=== PATIENT | female | born 1940 | race Two or more races ===

== ENCOUNTER 2017-07-18 14:21 | Observation (INO) | payer OTHER ==
--- NOTE | 2017-07-18 14:46 | PDOC ---
History of Present Illness - General Chief Complaint: Irregular Heart Beat Stated Complaint: AFIB Time Seen by Provider: 07/18/17 14:33 - History of Present Illness Initial Comments: 07/18/17 14:47 77 yo F with h/o ovarian ca. who presents with dizziness. Per phone checkout from [facility] patient presented with HTN 172/92, and was complaining of dizziness, with unsteady gait. EKG showed A-fib , A-flutter, and BP slowly improved to 150's SBP. Per patient report she was at [facility] for endometrial biopsy, with incidental SBP of 180-190. Shortly after was evaluated by cardiology ( dr. kothari) where her SBP was continually elevated, and patient was lightheaded, with abnormal EKG findings. Now asymptomatic. Denies chest pain, palpitations, swelling of ext, shortness of breath, N/V, F/C, abdominal or urinary complaints, lightheadedness, vertigo, weakness.Endorses h/o white coat HTN while in office, and denies antihypertensive medication ro anticoagulation use. Denies h/o ND, CAD, stent placement, CABG, CVA. PCP Dr. Gissel Puentes ( [place]) of 15 years. 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 Assisted in conversation by [employer] [id number], and Paul [id number]. Past History - Past Medical History Home Medications: Ambulatory Orders NK [No Known Home Medication] 07/18/17 COPD: No - Suicide/Smoking/Psychosocial Hx Smoking History: Never smoked Review of Systems - Review of Systems Comments:: 07/18/17 14:46 GENERAL/CONSTITUTIONAL: No fever or chills. No weakness. HEAD, EYES, EARS, NOSE AND THROAT: No change in vision. No ear pain or discharge. No sore throat.- CARDIOVASCULAR: No chest pain or shortness of breath RESPIRATORY: No cough, wheezing, or hemoptysis. GASTROINTESTINAL: No nausea, vomiting, diarrhea or constipation. GENITOURINARY: No dysuria, frequency, or change in urination. MUSCULOSKELETAL: No joint or muscle swelling or pain. No neck or back pain. SKIN: No rash NEUROLOGIC: No headache, vertigo, loss of consciousness, or change in strength/ sensation. ENDOCRINE: No increased thirst. No abnormal weight change HEMATOLOGIC/LYMPHATIC: No anemia, easy bleeding, or history of blood clots. ALLERGIC/IMMUNOLOGIC: No hives or skin allergy. *Physical Exam - Vital Signs Last Vital Signs Temp Pulse Resp BP Pulse Ox 98 F 84 18 141/69 100 07/18/17 14:36 07/18/17 14:36 07/18/17 14:36 07/18/17 14:36 07/18/17 14:36 - Physical Exam Comments: 07/18/17 14:46 GENERAL: Awake, alert, and fully oriented, in no acute distress HEAD: No signs of trauma, normocephalic, atraumatic EYES: PERRLA, EOMI, sclera anicteric, conjunctiva clear ENT: Hearing grossly normal, nares patent, oropharynx clear without exudates. Moist mucosa NECK: Normal ROM, no JVD, or masses LUNGS: No distress, speaks full sentences, clear to auscultation bilaterally HEART: Iregular rate and rhythm, normal S1 and S2, no murmurs, rubs or gallops, peripheral pulses normal and equal bilaterally. EXTREMITIES : Normal inspection, Normal range of motion, no edema. No clubbing or cyanosis. NEUROLOGICAL: Cranial nerves II through XII grossly intact. Normal speech, normal gait, no focal sensorimotor deficits SKIN: Warm, Dry, normal turgor, no rashes or lesions noted. Heart Score/ECG Review - History History: Slightly suspicious - Electrocardiogram EKG: Normal - ECG Intrepretation Rhythm: Regularly Irregular - ST and T Early Repolarization: No - ECG Impressions Normal ECG: No Non-specific ST Elevation: No Ischemic Changes: No ED Treatment Course - LABORATORY CBC & Chemistry Diagram: 07/18/17 15:00 07/18/17 15:00 Medical Decision Making - Medical Decision Making 07/18/17 17:01 77 yo F with h/o ovarian ca. who presents w/ transient episode of lightheadedness,SBP of 190, and A-fib on EKG while at [facility] for endometrial biopsy. Currently asymptomatic. Denies chest pain, palpitations, swelling of ext, shortness of breath, N/V, F/C, abdominal or urinary complaints, lightheadedness, vertigo, weakness. Denies antihypertensive or anticoagulation use. Denies h/o ND, CAD, stent placement, CABG, CVA. Physical exam unremarkable with irregular rate on cardiac exam. Currently hemodynamically stable. Patient history and presentation consistent with paroxysmal A-fib. Does not follow with cardiology. Will consider anticoagulation and assess for further cardiac arrythmais or metabolic disturbances. ED Course: CBC, CMP, Trop, BNP, Cardiac Profile EKG, UA, CXR 07/18/17 17:04 ChadsVasc score 3 moderate risk. Anticoagulant candidate. 07/18/17 17:16 Admit to tele/obs [facility]. Will consult cardiology Dr. Stephens for possible anticoagulation. 07/18/17 17:[address] Stephens Start on Eliquis. 07/18/17 17:25 Will give 5 mg PO Eliquis. Patient Cr 0.7 , 63.5 kg, and under age 78. *DC/Admit/Observation/Transfer Diagnosis at time of Disposition: Paroxysmal atrial fibrillation - Discharge Dispostion Admit: Yes - Referrals Referrals: Gissel Hawley MD [Primary Care Provider] - - Patient Instructions - Post Discharge Activity
--- NOTE | 2017-07-18 14:56 | PDOC ---
Attending Attestation - Resident Resident Name: Davon Fournier - ED Attending Attestation I have performed the following: I have examined & evaluated the patient, The case was reviewed & discussed with the resident, I agree w/resident's findings & plan, Exceptions are as noted - HPI HPI: 07/18/17 14:54 lightheaded - dizzy - Physicial Exam PE: 07/18/17 14:55 A Fib with RVR - Medical Decision Making 07/18/17 14:[address] Davon Fournier's Assessment and Plan
[2017-07-18 15:19] LABS: BASOPHIL 0.5 % (0-2.0); EOSINOPHIL 1.4 % (0-4.5); MCH 29.3 pg (25.7-33.7); MCHC 33.4 g/dl (32.0-36.0); NEUTROPHILS 61.8 % (42.8-82.8); PLATELET COUNT 224 K/MM3 (134-434); RDW 13.3 % (11.6-15.6); WHITE BLOOD COUNT 6.6 K/mm3 (4.0-10.0)
[2017-07-18 15:33] LABS: INR 1.13 (0.82-1.09); PROTHROMBIN TIME (PATIENT) 12.8 SEC (9.98-11.88)
[2017-07-18 15:40] LABS: CPK 84 IU/L (26-192); TROPONIN I < 0.02 ng/ml (0.00-0.05)
[2017-07-18 15:48] LABS: ALBUMIN 3.4 g/dl (3.4-5.0); BILIRUBIN,TOTAL 0.4 mg/dL (0.2-1.0); CREATININE 0.7 mg/dL (0.55-1.02); GLUCOSE,RANDOM 86 mg/dL (74-106); SGOT/AST 20 U/L (15-37); SGPT/ALT 30 U/L (12-78); TOT PROT 7.2 g/dl (6.4-8.2)
--- NOTE | 2017-07-18 16:08 | EKG ---
Test Reason : Blood Pressure : / mmHG Vent. Rate : 072 BPM Atrial Rate : 072 BPM P-R Int : 152 ms QRS Dur : 070 ms QT Int : 408 ms P-R-T Axes : 049 -08 017 degrees QTc Int : 446 ms SINUS RHYTHM WITH MARKED SINUS ARRHYTHMIA OTHERWISE NORMAL ECG NO PREVIOUS ECGS AVAILABLE Confirmed by SB SWEET, PAPA ([id number]) on 07/18/2017 4:07:49 PM Referred By: Confirmed By:PAPA BASURTO MD
[2017-07-18 16:09] LABS: URINE APPEARANCE CLEAR; URINE BILIRUBIN NEGATIVE (NEGATIVE); URINE BLOOD 1+ (NEGATIVE); URINE COLOR COLORLESS; URINE GLUCOSE (UA) NEGATIVE (NEGATIVE); URINE KETONE NEGATIVE (NEGATIVE); URINE NITRITE NEGATIVE (NEGATIVE); URINE PROTEIN NEGATIVE (NEGATIVE); URINE UROBILINOGEN NEGATIVE mg/dL (0.2-1.0)
[2017-07-18 16:28] LABS: ALK PHOS 93 U/L (45-117); ANION GAP 8 (8-16); CALCIUM 8.8 mg/dL (8.5-10.1); CO2 27 mmol/L (21-32)
--- NOTE | 2017-07-18 21:44 | HP ---
Admitting History and Physical - Primary Care Physician PCP: Faith Mack - Admission History of Present Illness: 77 yo F with h/o ovarian ca. who presents w/ transient episode of lightheadedness,SBP of 190, and A-fib on EKG while at [employer] for endometrial biopsy. Currently asymptomatic. Denies chest pain, palpitations, swelling of ext, shortness of breath, N/V, F/C, abdominal or urinary complaints, lightheadedness, vertigo, weakness. Denies antihypertensive or anticoagulation use. Denies h/o SD, CAD, stent placement, CABG, CVA. Physical exam unremarkable with irregular rate on cardiac exam. Currently hemodynamically stable. Patient history and presentation consistent with paroxysmal A-fib. Does not follow with cardiology. Will consider anticoagulation and assess for further cardiac arrythmais or metabolic disturbances. - Past Medical History Cardiovascular: Yes: AFIB - Smoking History Smoking history: Never smoked Home Medications - Allergies Allergies/Adverse Reactions: Allergies Allergy/AdvReac Type Severity Reaction Status Date / Time No Known Allergies Allergy Verified 07/18/17 18:04 - Home Medications Home Medications: Ambulatory Orders NK [No Known Home Medication] 07/18/17 Physical Examination Vital Signs: Vital Signs Temperature 98 F 07/18/17 19:25 Pulse Rate 82 07/18/17 19:25 Respiratory Rate 16 07/18/17 19:25 Blood Pressure 144/75 07/18/17 19:25 O2 Sat by Pulse Oximetry (%) 100 07/18/17 19:25 Constitutional: Yes: No Distress HENT: Yes: Atraumatic Neck: Yes: Supple Cardiovascular: Yes: Pulse Irregular Respiratory: Yes: CTA Bilaterally Gastrointestinal: Yes: Normal Bowel Sounds Extremities: Yes: WNL Neurological: Yes: Alert, Oriented Labs: CBC, BMP 07/18/17 15:00 07/18/17 15:00 Problem List - Problems (1) Paroxysmal atrial fibrillation Code(s): I48.0 - PAROXYSMAL ATRIAL FIBRILLATION Assessment/Plan Laboratory Tests 07/18/17 07/18/17 07/18/17 15:00 15:00 15:00 WBC 6.6 RBC 4.25 Hgb 12.5 Hct 37.4 MCV 88.0 MCH 29.3 MCHC 33.4 RDW 13.3 Plt Count 224 MPV 9.0 Neutrophils % 61.8 Lymphocytes % 29.4 Monocytes % 6.9 Eosinophils % 1.4 Basophils % 0.5 PT with INR INR Sodium 141 Potassium 3.7 Chloride 106 Carbon Dioxide 27 Anion Gap 8 BUN 14 Creatinine 0.7 Creat Clearance w eGFR > 60 Random Glucose 86 Calcium 8.8 Total Bilirubin 0.4 AST 20 ALT 30 Alkaline Phosphatase 93 Creatine Kinase 84 Troponin I < 0.02 Total Protein 7.2 Albumin 3.4 Urine Color Urine Appearance Urine pH Ur Specific [place] Urine Protein Urine Glucose (UA) Urine Ketones Urine Blood Urine Nitrite Urine Bilirubin Urine Urobilinogen 07/18/17 07/18/17 15:00 15:40 WBC RBC Hgb Hct MCV MCH MCHC RDW Plt Count MPV Neutrophils % Lymphocytes % Monocytes % Eosinophils % Basophils % PT with INR 12.80 H INR 1.13 Sodium Potassium Chloride Carbon Dioxide Anion Gap BUN Creatinine Creat Clearance w eGFR Random Glucose Calcium Total Bilirubin AST ALT Alkaline Phosphatase Creatine Kinase Troponin I Total Protein Albumin Urine Color Colorless Urine Appearance Clear Urine pH 5.0 Ur Specific [place] 1.003 Urine Protein Negative Urine Glucose (UA) Negative Urine Ketones Negative Urine Blood 1+ H Urine Nitrite Negative Urine Bilirubin Negative Urine Urobilinogen Negative Active Medications Generic Name Dose Route Start Last Admin Trade Name Freq PRN Reason Stop Dose Admin Apixaban 5 mg 07/18/17 17:30 Eliquis - PO BID [facility]
[2017-07-18] MEDS: APIXABAN 5 MG TABLET PO SCH ×2 (22:57)
[2017-07-18 23:00] LABS: URINE LEUK ESTERASE Negative (NEGATIVE)
[2017-07-19 00:14] LABS: CPK 75 IU/L (26-192); TROPONIN I < 0.02 ng/ml (0.00-0.05)
[2017-07-19 03:35] VITALS: TEMP 98.7
[2017-07-19 04:13] VITALS: BMI 27.1
[2017-07-19 07:28] LABS: BASOPHIL 0.5 % (0-2.0); EOSINOPHIL 2.2 % (0-4.5); MCHC 32.7 g/dl (32.0-36.0); MEAN CELL VOLUME 88.6 fl (80-96); MEAN PLT VOLUME 9.1 fl (7.5-11.1); NEUTROPHILS 50.7 % (42.8-82.8); PLATELET COUNT 215 K/MM3 (134-434); RDW 13.1 % (11.6-15.6); WHITE BLOOD COUNT 6.4 K/mm3 (4.0-10.0)
--- NOTE | 2017-07-19 07:46 | PN ---
Progress Note (short form) - Note Progress Note: Chief Complaint: Events noted, notes reviewed, denies any chest pain or dyspnea , upon review of the EKG which was performed at [facility] offices revealed sinus rhythm with sinus arrhythmia and APC's History of Present Illness: Seen and examined on telemetry. Full consult dictated - Current Medication List Current Medications Apixaban (Eliquis -) 5 mg PO BID [facility] Last Admin: 07/18/17 22:57 Dose: 5 mg Review of Systems Cardiovascular: As noted above Respiratory: denies: Cough or Sputum Production Gastrointestinal: denies: Nausea, Vomiting, Diarrhea, Constipation or Abdominal Discomfort Musculoskeletal: No Symptoms Reported Endocrine: No Symptoms Reported - Objective Vital Signs: Last Vital Signs Temp Pulse Resp BP Pulse Ox 98.7 F 70 18 117/59 95 07/19/17 06:00 07/19/17 06:00 07/19/17 06:00 07/19/17 06:00 07/19/17 05:46 Intake & Output 07/16/17 07/17/17 07/18/17 07/19/17 23:59 23:59 23:59 23:59 Intake Total 240 250 Balance 240 250 Weight 148 lb 6 oz Constitutional: No Distress, Calm Neck: Supple Negative JVD No Bruit Cardiovascular: S1 S2 Regular Rate and Rhythm No Murmurs Clicks or Gallops Respiratory: Clear to A&P Bilaterally Gastrointestinal: Soft Benign Normal Bowel Sounds Ext: Negative Edema Labs: CBC, BMP 07/19/17 05:22 07/18/17 15:00 Hepatic Panel Total Bilirubin 0.4 mg/dL (0.2-1.0) 07/18/17 15:00 AST 20 U/L (15-37) 07/18/17 15:00 ALT 30 U/L (12-78) 07/18/17 15:00 Alkaline Phosphatase 93 U/L (45-117) 07/18/17 15:00 Albumin 3.4 g/dl (3.4-5.0) 07/18/17 15:00 INR, PTT INR 1.13 (0.82-1.09) 07/18/17 15:00 Troponin, BNP 07/18/17 07/18/17 15:00 23:30 Troponin I < 0.02 < 0.02 Assessment/Plan ASSESSMENT: 1. Cardiac arrhythmia, no evidence of atrial fibrillation upon review of EKG from [facility] offices, sinus rhythm with sinus arrhythmia and APC's, so indication for continued hospitalization or A/C, D/C Eliquis 2. HTN, uncontrolled to be managed as outpatient 3. Dizziness, resolved PLAN: 1. Recommend initiation of Toprol XL therapy at 25 mg daily 2. D/C Eliquis, no indications 3. Can be D/C home from the cardiovascular point of view and F/U with PCP for further evaluation and management of HTN Rabia Concepcion M.D.
[2017-07-19 07:51] VITALS: BP 132/68; PULSE 89
[2017-07-19] MEDS ORDERED: METOPROLOL SUCCINATE 25 MG TAB.SR.24H (FP) PO SCH (08:00)
[2017-07-19 08:03] LABS: CPK 78 IU/L (26-192); TROPONIN I < 0.02 ng/ml (0.00-0.05)
--- NOTE | 2017-07-19 10:06 | CONS ---
DATE OF CONSULTATION: 07/19/2017 REQUESTING PHYSICIAN: Jaelyn Mack MD CHIEF COMPLAINT: Evaluation of dizziness, cardiac arrhythmia, hypertensive cardiovascular disease. HISTORY OF PRESENT ILLNESS: This 77-year-old female of [place] descent with no significant past medical history was referred urgently to [facility] Emergency Room after a gynecological biopsy attempt with dizziness, elevated blood pressure, and an abnormal electrocardiogram. Patient stated that following the procedure she had reported transient dizziness, and upon examination, she was noted to have elevated blood pressure measurement and an irregular pulse. Electrocardiogram was performed, computer reading interpreted it as atrial fibrillation, but upon review of the EKG, patient was noted to have evidence of sinus rhythm, sinus arrhythmia, and premature supraventricular contractions. In view of the above computer interpretation, patient was admitted to [facility] and anticoagulation therapy was initiated with Eliquis. Upon questioning the patient, she does not report any history of coronary artery disease or congestive heart failure. Patient does not report any history of hypertensive cardiovascular disease, diabetes mellitus, or hypercholesterolemia. Patient denies any chest discomfort. Patient denies any dyspnea, orthopnea, paroxysmal nocturnal dyspnea, or peripheral edema. Patient denies any palpitations or syncope. Patient denies any fatigue or tiredness. PAST MEDICAL HISTORY: History of ovarian carcinoma. SOCIAL HISTORY: Nonsmoker. She admits to social alcohol intake. FAMILY HISTORY: Positive for coronary artery disease. ALLERGIES: None reported. MEDICAL THERAPY AT HOME: None. REVIEW OF SYSTEMS: Head and neck: Denies headache, photophobia, blurring of vision. Respiratory: No cough or sputum production. Cardiovascular: As noted above. Gastrointestinal: No nausea, vomiting, diarrhea, or abdominal discomfort. Genitourinary: No symptoms reported. PHYSICAL EXAMINATION: Vital signs: Blood pressure is 117/59 mmHg, pulse rate is 70 beats per minute. Head and neck: Pupils are equally reactive to light and accommodation. Extraocular muscles are intact. Anicteric sclerae. Negative JVD. No bruit appreciated. Chest: Clear to auscultation and percussion. Cardiovascular: S1, S2 regular. No murmur, clicks, or gallops. Abdomen: Soft, benign. Normoactive bowel sounds. Extremities: Negative edema. Intact distal pulses. No calf tenderness. STUDIES: Electrocardiogram reveals sinus rhythm with sinus arrhythmia. Otherwise, within normal limits. CBC revealed a white cell count of 6.4, hemoglobin 11.7, platelets 215. Basic metabolic profile revealed sodium of 141, potassium 3.7, BUN of 14, creatinine 0.7, glucose 86. Troponin less than 0.02. ASSESSMENT: 1. Cardiac arrhythmia. No evidence of atrial fibrillation upon review of electrocardiogram from [facility] offices. Sinus rhythm with sinus arrhythmia and premature supraventricular contractions. No indication for continued hospitalization or anticoagulation therapy. Discontinue Eliquis therapy was initiated upon admission. 2. Hypertension, uncontrolled. To be managed as an outpatient. 3. Dizziness. Resolved. PLAN: 1. Recommend initiation of low-dose beta-leela therapy at 25 mg once daily. 2. Discontinue Eliquis therapy. No indications. 3. Can be discharged home from a cardiovascular point of view and follow up with primary care provider for further evaluation and management of hypertension. Thank you for the kind referral MEL GODINEZ M.D. [id number]
--- NOTE | 2017-07-19 10:50 | DS ---
Physical Examination Vital Signs: Vital Signs Temperature 98.7 F 07/19/17 07:50 Pulse Rate 89 07/19/17 07:50 Respiratory Rate 18 07/19/17 07:51 Blood Pressure 132/68 07/19/17 07:50 O2 Sat by Pulse Oximetry (%) 97 07/19/17 07:51 Labs: CBC, BMP 07/19/17 05:22 07/18/17 15:00 Discharge Summary Reason For Visit: ACUTE PROSTATITIS Current Active Problems Paroxysmal atrial fibrillation (Acute) - Instructions Referrals: Gissel Hawley MD [Primary Care Provider] - - Home Medications Comprehensive Discharge Medication List: Ambulatory Orders Metoprolol Succinate [Toprol XL -] 25 mg PO DAILY #30 tab.sr.24h 07/19/17
== END 2017-07-19 11:38 | disposition home or self-care (01) ==
LOC: JER 14:21 → JERBED 17:41 → J4W 20:27
PROVIDERS: ADMIT Internal Medicine; ATTEND Internal Medicine
DX: I48.0 Paroxysmal atrial fibrillation (principal)
CPT/HCPCS: 36415; 71010-TC; 80053; 81003; 81015; 82550; 84484; 85025; 85610; 93005; 93010; 99284-25; G0378